=== PATIENT | male | born 1995 | race Two or more races ===

== ENCOUNTER 2016-11-09 21:15 | Emergency (ER) | payer BC, OTHER ==
[~2016-11-09] VITALS: Ht 177.8 cm; Wt 149.7 kg
[2016-11-09 22:07] LABS: Basophils # (auto) 0 uL; CONDITION Y; Eosinophils # (auto) 0.2 uL; Eosinophils % (auto) 1.5 % (0.0-7.0); Hematocrit 43.2 % (41.0-53.0); Hemoglobin 14.5 g/dL (13.5-17.5); Lymphocytes # (auto) 4.1 uL; Lymphocytes % (auto) 33.5 % (10.0-50.0); Mean Corpuscular Hemoglobin 27.4 pg (28.0-32.0); Mean Corpuscular Hgb Conc. 33.6 g/dL (32.0-36.0); Mean Corpuscular Volume 81.6 fL (80.0-100.0); Mean Platelet Volume 7.9 fL (7.4-10.4); Monocytes # (auto) 0.9 uL; Monocytes % (auto) 7.1 % (0.0-12.0); Neutrophils # (auto) 7.1 uL; Neutrophils % (auto) 57.9 % (37.0-80.0); Platelet Count (auto) 409 10^3/uL (140-450); Red Cell Distribution Width 14.7 % (11.6-16.0); White Blood Cell 12.3 10^3/uL (4.4-10.8)
[2016-11-09 22:41] LABS: Albumin 3.5 g/dL (3.4-5.0); Anion Gap 9 (5-15); Aspartate Aminotransferase 19 U/L (15-37); Blood Urea Nitrogen 14 mg/dL (7-18); Calcium 8.3 mg/dL (8.5-10.1); Carbon Dioxide 26 mmol/L (21-32); Chloride 105 mmol/L (98-107); GFR African American 91 mL/min; GFR Non-African American 75 mL/min; Glucose 100 mg/dL (74-106); Sodium 140 mmol/L (136-145)
[2016-11-09 22:46] LABS: Alkaline Phosphatase 118 U/L (45-117); Bilirubin, Total 0.2 mg/dL (0.2-1.0); Total Protein 7.7 g/dL (6.4-8.2)
[2016-11-10] MEDS ORDERED: LORazepam 0.5 MG TAB PO ONE (01:15)
[2016-11-10 02:14] VITALS: BP 149/102
== END 2016-11-10 02:33 | disposition home or self-care (01) ==
LOC: ER 21:19
DX: R07.9 Chest pain, unspecified (principal); R06.02 Shortness of breath
CPT/HCPCS: 36415; 80053; 84484; 85025; 93005

== ENCOUNTER 2016-12-25 14:59 | Emergency (ER) | payer OTHER ==
[~2016-12-25] VITALS: Ht 177.8 cm; Wt 149.7 kg
[2016-12-25 16:24] VITALS: BP 153/94
== END 2016-12-25 17:10 | disposition home or self-care (01) ==
LOC: ER 15:14
DX: S90.821A Blister (nonthermal), right foot, initial encounter (principal); X58.XXXA Exposure to other specified factors, initial encounter; Y93.89 Activity, other specified; Y99.8 Other external cause status; Y92.89 Other specified places as the place of occurrence of the external cause

== ENCOUNTER 2017-02-06 10:50 | Emergency (ER) | payer OTHER ==
[~2017-02-06] VITALS: Ht 177.8 cm; Wt 149.7 kg
[2017-02-06 11:00] VITALS: BP 142/106
== END 2017-02-06 11:41 | disposition home or self-care (01) ==
LOC: ER 10:50
DX: L02.622 Furuncle of left foot (principal)

== ENCOUNTER 2020-02-05 20:18 | Emergency (ER) | payer MEDICAID, OTHER ==
[~2020-02-05] VITALS: Ht 177.8 cm; Wt 161.0 kg
[2020-02-05 21:27] LABS: Basophils # (auto) 0 10 ^3/uL (0-0.2); Basophils % (auto) 0.2 % (0.0-2.0); Eosinophils # (auto) 0.3 10 ^3/uL (0-0.8); Eosinophils % (auto) 1.9 % (0.0-7.0); Hematocrit 44.4 % (41.0-53.0); Hemoglobin 14.7 g/dL (13.5-17.5); Lymphocytes % (auto) 29.7 % (10.0-50.0); Mean Corpuscular Hemoglobin 27.2 pg (28.0-32.0); Mean Corpuscular Volume 82.5 fL (80.0-100.0); Monocytes # (auto) 1.1 10 ^3/uL (0-1.3); Monocytes % (auto) 8.1 % (0.0-12.0); Neutrophils # (auto) 8.2 10 ^3/uL (1.6-8.6); Neutrophils % (auto) 60.1 % (37.0-80.0); Platelet Count (auto) 377 10^3/uL (140-450); Red Blood Cells 5.38 10^6/uL (4.5-5.90); Red Cell Distribution Width 15.3 % (11.8-14.3); White Blood Cell 13.6 10^3/uL (4.4-10.8)
[2020-02-05 21:42] LABS: Albumin 3.6 g/dL (3.4-5.0); Anion Gap 5 (5-15); Blood Urea Nitrogen 16 mg/dL (7-18); Calcium 9.6 mg/dL (8.5-10.1); Carbon Dioxide 29 mmol/L (21-32); Chloride 104 mmol/L (98-107); Glucose 88 mg/dL (74-106); Sodium 138 mmol/L (136-145)
[2020-02-05 21:47] LABS: Alanine Aminotransferase 32 U/L (16-61); Alkaline Phosphatase 108 U/L (45-117); Aspartate Aminotransferase 19 U/L (15-37); BUN/Creatinine Ratio 14.2; Bilirubin, Total 0.2 mg/dL (0.2-1.0); GFR African American 101 mL/min; GFR Non-African American 83 mL/min
[2020-02-06 00:48] LABS: INR 0.92 (0.9-1.15); Partial Thromboplastin Time 26.8 sec (23.0-31.2)
[2020-02-06 04:00] VITALS: BP 118/68
[2020-02-06] MEDS ORDERED: LISI-646 PO (04:31)
[2020-02-06] MEDS ORDERED: ACE650RS PO (04:31)
[2020-02-06] MEDS ORDERED: ASCO500T11 PO (04:31)
[2020-02-06] MEDS ORDERED: TEMA30CA PO (04:31)
[2020-02-06] MEDS ORDERED: MULT-1018 PO (04:31)
[2020-02-06] MEDS ORDERED: ACET1CAP14 PO (04:31)
[2020-02-06] MEDS ORDERED: DIPH-515 PO (04:31)
[2020-02-06] MEDS ORDERED: [UNRECOGNIZED DRUG - CODE] SL (04:31)
[2020-02-06] MEDS ORDERED: HCTZ25T PO (04:31)
[2020-02-06] MEDS ORDERED: MIRT30TA PO (04:31)
[2020-02-06] MEDS ORDERED: KETO2CRE4 TOP (04:31)
[2020-02-06] MEDS ORDERED: MELA3TAB27 PO (04:31)
[2020-02-06] MEDS ORDERED: CITA10TA59 PO (04:31)
[2020-02-06] MEDS ORDERED: CHOL20007 PO (04:31)
[2020-02-06] MEDS ORDERED: DONE10TA40 PO (04:31)
[2020-02-06] MEDS ORDERED: LACTCAP35 PO (04:31)
[2020-02-06] MEDS ORDERED: LEVO125T7 PO (04:31)
== END 2020-02-06 05:06 | disposition home or self-care (01) ==
LOC: ER 20:18
DX: R07.89 Other chest pain (principal); K21.9 Gastro-esophageal reflux disease without esophagitis; I10 Essential (primary) hypertension
CPT/HCPCS: 36415; 71045; 80053; 83880; 84484; 85025; 85379; 85610; 85730; 93005

== ENCOUNTER 2021-05-25 15:11 | Emergency (ER) | payer MEDICAID ==
[~2021-05-25] VITALS: Ht 177.8 cm; Wt 166.5 kg
[~2021-05-25 15:11] MED LIST: ACE650RS PO; ACET1CAP14 PO; ASCO500T11 PO; CHOL20007 PO; CITA10TA8 PO; DIPH-515 PO; DONE1TAB88 PO; HYDR25TA5 PO; KETO2CRE4 TOP; LACTCAP35 PO; LEVO125T7 PO; LISI20TA28 PO; MELA3TAB27 PO; MIRT-66 PO; MULT-1018 PO; TEMA30CA PO; [UNRECOGNIZED DRUG - CODE] SL
[2021-05-25] MEDS ORDERED: ASPirin 81 mg TAB PO ONE (15:30)
[2021-05-25 16:14] LABS: Basophils # (auto) 0 10 ^3/uL (0-0.2); Basophils % (auto) 0.4 % (0.0-2.0); Lymphocytes # (auto) 2.6 10 ^3/uL (0.4-5.4); Monocytes # (auto) 0.9 10 ^3/uL (0-1.3); Neutrophils # (auto) 7.8 10 ^3/uL (1.6-8.6); White Blood Cell 11.4 10^3/uL (4.4-10.8)
[2021-05-25 16:17] LABS: Eosinophils # (auto) 0.1 10 ^3/uL (0-0.8); Eosinophils % (auto) 1.1 % (0.0-7.0); Hematocrit 42.7 % (41.0-53.0); Hemoglobin 14.2 g/dL (13.5-17.5); Mean Corpuscular Hgb Conc. 33.2 g/dL (32.0-36.0); Mean Corpuscular Volume 81.3 fL (80.0-100.0); Monocytes % (auto) 7.5 % (0.0-12.0); Nucleated Red Blood Cells % 0.2 %; Red Blood Cells 5.25 10^6/uL (4.5-5.90); Red Cell Distribution Width 14.4 % (11.8-14.3)
[2021-05-25 16:35] LABS: Albumin 3.5 g/dL (3.4-5.0); BUN/Creatinine Ratio 9.5; Calcium 8.8 mg/dL (8.5-10.1); Potassium 3.9 mmol/L (3.5-5.1)
[2021-05-25 16:40] LABS: Bilirubin, Total 0.4 mg/dL (0.2-1.0); Total Protein 7.5 g/dL (6.4-8.2)
[2021-05-25 16:48] LABS: Alcohol, Urine < 3.0 mg/dL (0-10); Amphetamine Screen, Urine NEGATIVE (NEGATIVE); Barbiturate Scree,Urine NEGATIVE (NEGATIVE); Benzodiazephine Screen, Urine NEGATIVE (NEGATIVE); Cannabinoid Screen, Urine NEGATIVE (NEGATIVE); Cocaine Screen, Urine NEGATIVE (NEGATIVE); Opiate Scree,Urine NEGATIVE (NEGATIVE); Phencyclidine Screen, Urine NEGATIVE (NEGATIVE)
[2021-05-25 17:30] VITALS: BP 141/79
== END 2021-05-25 18:06 | disposition home or self-care (01) ==
LOC: ER 15:11
DX: R07.89 Other chest pain (principal); I10 Essential (primary) hypertension
CPT/HCPCS: 36415; 71046; 80053; 80307; 84484; 85025; 85379; 93005

== ENCOUNTER 2022-02-04 15:47 | Emergency (ER) | payer MEDICAID ==
[~2022-02-04] VITALS: Ht 177.8 cm; Wt 170.0 kg
[2022-02-04 16:18] LABS: Basophils # (auto) 0.1 10 ^3/uL (0-0.2); Basophils % (auto) 0.7 % (0.0-2.0); Eosinophils # (auto) 0.1 10 ^3/uL (0-0.8); Eosinophils % (auto) 1.1 % (0.0-7.0); Hematocrit 44.9 % (41.0-53.0); Hemoglobin 14.9 g/dL (13.5-17.5); Lymphocytes # (auto) 3.2 10 ^3/uL (0.4-5.4); Lymphocytes % (auto) 24.7 % (10.0-50.0); Mean Corpuscular Hemoglobin 27.3 pg (28.0-32.0); Mean Corpuscular Hgb Conc. 33.2 g/dL (32.0-36.0); Mean Corpuscular Volume 82.3 fL (80.0-100.0); Neutrophils # (auto) 8.4 10 ^3/uL (1.6-8.6); Neutrophils % (auto) 65.5 % (37.0-80.0); Red Blood Cells 5.46 10^6/uL (4.5-5.90); Red Cell Distribution Width 14.8 % (11.8-14.3); White Blood Cell 12.9 10^3/uL (4.4-10.8)
[2022-02-04 16:29] VITALS: BP 153/81
[2022-02-04 16:36] LABS: Albumin 3.7 g/dL (3.4-5.0); Calcium 9.2 mg/dL (8.5-10.1)
[2022-02-04 16:46] LABS: BUN/Creatinine Ratio 15.3; Bilirubin, Total 0.4 mg/dL (0.2-1.0); CRP High Sensitivity 1.83 mg/dL (< 0.3); Total Protein 7.3 g/dL (6.4-8.2)
== END 2022-02-04 22:04 | disposition home or self-care (01) ==
LOC: ER 15:47
DX: R07.89 Other chest pain (principal); I10 Essential (primary) hypertension; Z20.822 Contact with and (suspected) exposure to COVID-19; Z77.22 Contact with and (suspected) exposure to environmental tobacco smoke (acute) (chronic)
CPT/HCPCS: 36415; 71045; 80053; 84484; 85025; 85379; 86141; 87426; 87804; 93005

== ENCOUNTER 2022-02-13 15:12 | Emergency (ER) | payer MEDICAID ==
[~2022-02-13] VITALS: Ht 177.8 cm; Wt 172.5 kg
[2022-02-13 16:27] VITALS: BP 113/79
[2022-02-13] MEDS ORDERED: AZIT500T66 PO (16:33)
== END 2022-02-13 17:07 | disposition home or self-care (01) ==
LOC: ER 15:12
DX: J03.90 Acute tonsillitis, unspecified (principal); I10 Essential (primary) hypertension; Z79.2 Long term (current) use of antibiotics; Z79.899 Other long term (current) drug therapy

== ENCOUNTER 2022-06-26 09:23 | Emergency (ER) | payer MEDICAID ==
[~2022-06-26] VITALS: Ht 177.8 cm; Wt 163.6 kg
[~2022-06-26 09:23] MED LIST changes: +AZIT500T66 PO
[2022-06-26 09:27] VITALS: BP 132/80
[2022-06-26 10:10] LABS: INR 0.94 (0.9-1.15); Partial Thromboplastin Time 30.2 sec (24.6-33.4)
[2022-06-26 10:11] LABS: Albumin 3.3 g/dL (3.4-5.0); BUN/Creatinine Ratio 14.8 (10.0-20.0); Calcium 9.2 mg/dL (8.5-10.1); Potassium 3.9 mmol/L (3.5-5.1)
[2022-06-26 10:13] LABS: Bilirubin, Total 0.3 mg/dL (0.2-1.0); Total Protein 7.8 g/dL (6.4-8.2)
[2022-06-26 10:23] LABS: Basophils # (auto) 0.1 10 ^3/uL (0-0.2); Basophils % (auto) 0.6 % (0.0-2.0); Eosinophils # (auto) 0.2 10 ^3/uL (0-0.8); Eosinophils % (auto) 2.1 % (0.0-7.0); Hematocrit 44.4 % (41.0-53.0); Hemoglobin 15.1 g/dL (13.5-17.5); Lymphocytes # (auto) 2.7 10 ^3/uL (0.4-5.4); Lymphocytes % (auto) 29.1 % (10.0-50.0); Mean Corpuscular Hemoglobin 27.5 pg (28.0-32.0); Mean Corpuscular Hgb Conc. 33.9 g/dL (32.0-36.0); Mean Corpuscular Volume 81.3 fL (80.0-100.0); Monocytes # (auto) 0.5 10 ^3/uL (0-1.3); Monocytes % (auto) 5.9 % (0.0-12.0); Neutrophils # (auto) 5.8 10 ^3/uL (1.6-8.6); Neutrophils % (auto) 62.3 % (37.0-80.0); Nucleated Red Blood Cells % 0.3 %; Red Blood Cells 5.46 10^6/uL (4.5-5.90); Red Cell Distribution Width 14.3 % (11.8-14.3); White Blood Cell 9.3 10^3/uL (4.4-10.8)
== END 2022-06-26 11:56 | disposition home or self-care (01) ==
LOC: ER 09:23
DX: R07.89 Other chest pain (principal); I10 Essential (primary) hypertension; Z79.2 Long term (current) use of antibiotics; Z79.899 Other long term (current) drug therapy
CPT/HCPCS: 36415; 71045; 80053; 83735; 83880; 84484; 85025; 85610; 85730; 93005

== ENCOUNTER 2022-06-29 18:51 | Inpatient (IN) | payer MEDICAID ==
[~2022-06-29] VITALS: Ht 177.8 cm; Wt 168.4 kg
[2022-06-29 20:01] LABS: Basophils # (auto) 0 10 ^3/uL (0-0.2); Basophils % (auto) 0.3 % (0.0-2.0); Eosinophils # (auto) 0.1 10 ^3/uL (0-0.8); Hematocrit 42.9 % (41.0-53.0); Hemoglobin 14.6 g/dL (13.5-17.5); Lymphocytes # (auto) 3.7 10 ^3/uL (0.4-5.4); Lymphocytes % (auto) 30.6 % (10.0-50.0); Mean Corpuscular Hemoglobin 27.1 pg (28.0-32.0); Mean Corpuscular Hgb Conc. 33.9 g/dL (32.0-36.0); Mean Corpuscular Volume 79.9 fL (80.0-100.0); Monocytes # (auto) 0.9 10 ^3/uL (0-1.3); Monocytes % (auto) 7.7 % (0.0-12.0); Neutrophils # (auto) 7.4 10 ^3/uL (1.6-8.6); Neutrophils % (auto) 60.4 % (37.0-80.0); Nucleated Red Blood Cells % 0.2 %; Red Blood Cells 5.37 10^6/uL (4.5-5.90); Red Cell Distribution Width 14.3 % (11.8-14.3); White Blood Cell 12.2 10^3/uL (4.4-10.8)
[2022-06-29 20:14] LABS: Albumin 3.5 g/dL (3.4-5.0); BUN/Creatinine Ratio 14.4 (10.0-20.0); Calcium 9.2 mg/dL (8.5-10.1); Potassium 3.7 mmol/L (3.5-5.1)
[2022-06-29 20:17] LABS: Bilirubin, Total 0.3 mg/dL (0.2-1.0)
[2022-06-29 20:20] LABS: INR 0.98 (0.9-1.15); Partial Thromboplastin Time 31.2 sec (24.6-33.4)
[2022-06-30] MEDS ORDERED: HYDROcodone-ACET 5/325MG TAB PO PRN (06:30)
[2022-06-30] MEDS ORDERED: cloNIDine HCL 0.1 MG TAB PO PRN (06:30)
[2022-06-30] MEDS ORDERED: ACETAMINOPHEN 325 MG TAB PO PRN (06:30)
[2022-06-30] MEDS ORDERED: ONDANSETRON HCL 4 MG/2 ML VIAL IV PRN (06:30)
[2022-06-30] MEDS ORDERED: TEMAZEPAM 15 MG CAP PO PRN (06:30)
[2022-06-30] MEDS: PANTOPRAZOLE 40 MG TAB PO SCH (09:58)
[2022-06-30] MEDS: ASPirin 81 mg TAB PO SCH (09:59)
[2022-06-30] MEDS: LISINOPRIL 10 MG TAB PO SCH (10:00)
[2022-06-30 16:46] LABS: Folate (Folic Acid) 12.29 ng/mL (5.38-24)
[2022-06-30 16:58] LABS: Alcohol, Urine < 3.0 mg/dL (0-10); Amphetamine Screen, Urine NEGATIVE (NEGATIVE); Barbiturate Scree,Urine NEGATIVE (NEGATIVE); Benzodiazephine Screen, Urine NEGATIVE (NEGATIVE); Cannabinoid Screen, Urine NEGATIVE (NEGATIVE); Cocaine Screen, Urine NEGATIVE (NEGATIVE); Opiate Scree,Urine NEGATIVE (NEGATIVE); Phencyclidine Screen, Urine NEGATIVE (NEGATIVE)
[2022-06-30] MEDS ORDERED: ATORVASTATIN 20 MG TAB PO SCH (22:00)
[2022-06-30 23:40] VITALS: BP 133/70
[2022-07-01] VITALS: BP 133/70
[2022-07-01 05:00] VITALS: BP 108/61
[2022-07-01 06:48] LABS: Basophils # (auto) 0 10 ^3/uL (0-0.2); Basophils % (auto) 0.5 % (0.0-2.0); Eosinophils # (auto) 0.2 10 ^3/uL (0-0.8); Hematocrit 41.2 % (41.0-53.0); Hemoglobin 13.9 g/dL (13.5-17.5); Lymphocytes # (auto) 2.5 10 ^3/uL (0.4-5.4); Lymphocytes % (auto) 31.2 % (10.0-50.0); Mean Corpuscular Hemoglobin 28.1 pg (28.0-32.0); Mean Corpuscular Hgb Conc. 33.8 g/dL (32.0-36.0); Mean Corpuscular Volume 83.1 fL (80.0-100.0); Monocytes # (auto) 0.7 10 ^3/uL (0-1.3); Neutrophils # (auto) 4.5 10 ^3/uL (1.6-8.6); Neutrophils % (auto) 57.3 % (37.0-80.0); Red Blood Cells 4.95 10^6/uL (4.5-5.90); Red Cell Distribution Width 14.2 % (11.8-14.3); White Blood Cell 7.9 10^3/uL (4.4-10.8)
[2022-07-01 07:27] LABS: Calcium 8.8 mg/dL (8.5-10.1)
[2022-07-01 08:15] VITALS: BP 143/76
[2022-07-01 09:00] VITALS: BP 129/71
[2022-07-01] MEDS: ASPirin 81 mg TAB PO SCH (09:58)
[2022-07-01] MEDS: PANTOPRAZOLE 40 MG TAB PO SCH (09:58)
[2022-07-01] MEDS ORDERED: THIAMINE 100mg/ml INJ (200mg/2ml VIAL) IV SCH (10:00)
[2022-07-01] MEDS: LISINOPRIL 10 MG TAB PO SCH (10:06)
[2022-07-01 11:55] VITALS: BP 118/71
[2022-07-01 13:00] VITALS: BP 122/58
== END 2022-07-01 16:48 | disposition home or self-care (01) | DRG 47 ==
LOC: ER 18:51 → OVERFLOW 06-30 06:22 → WEST WING 06-30 23:29
PROVIDERS: ADMIT Nurse Practitioner; ATTEND Nurse Practitioner Acute Care
DX: G45.9 Transient cerebral ischemic attack, unspecified (principal); R65.10 Systemic inflammatory response syndrome (SIRS) of non-infectious origin without acute organ dysfunction; Z68.43 Body mass index [BMI] 50.0-59.9, adult; E66.01 Morbid (severe) obesity due to excess calories; I10 Essential (primary) hypertension; D72.829 Elevated white blood cell count, unspecified; H53.8 Other visual disturbances; R20.2 Paresthesia of skin; Z20.822 Contact with and (suspected) exposure to COVID-19
CPT/HCPCS: 36415; 70450; 70551; 71045; 80048; 80053; 80307; 82306; 82607; 82746; 83735; 83880; 84425; 84443; 84484; 85025; 85610; 85730; 87081; 87426; 93005; G0378

== ENCOUNTER 2023-11-17 18:50 | Emergency (ER) | payer MEDICAID ==
[~2023-11-17] VITALS: Ht 177.8 cm; Wt 163.7 kg
[~2023-11-17 18:50] MED LIST changes: +IBUP-1456 PO; -LISI20TA28 PO; +LISI20TA56 PO; -MIRT-66 PO; +MIRT-94 PO
[2023-11-17 22:37] VITALS: BP 136/84; TEMP 98.5
[2023-11-17 22:42] VITALS: PULSE 88; RESP 18; O2SAT 97
[2023-11-18 00:18] LABS: Rapid Influenza A Negative (Negative); Rapid Influenza B Negative (Negative); Rapid Strep A Screen-Throat Negative
[2023-11-18 00:19] LABS: COVID19 ANTIGEN SOFIA FIA NEGATIVE (NEGATIVE)
== END 2023-11-18 00:39 | disposition home or self-care (01) ==
LOC: ER 18:50
DX: B34.9 Viral infection, unspecified (principal); J11.1 Influenza due to unidentified influenza virus with other respiratory manifestations; I10 Essential (primary) hypertension; Z20.822 Contact with and (suspected) exposure to COVID-19
CPT/HCPCS: 36415; 87070; 87426; 87804; 87880

== ENCOUNTER 2024-05-19 16:11 | Emergency (ER) | payer MEDICAID ==
[~2024-05-19] VITALS: Ht 177.8 cm; Wt 167.2 kg
--- NOTE | 2024-05-19 16:33 | ECG ---
[facility] Test Date: 2024-05-19 Test Time: 16:28:04 Pat Name: EMORY KOCH Department: ER Room: Gender: M Flat Locker: ZE : 1995 Requested By: OTF LUNDBERG Order Number: [id number] Reading MD: Measurements Intervals [place] Rate: 97 P: 38 OH: 153 QRS: 31 QRSD: 83 T: 33 QT: 337 QTc: 428 Interpretive Statements Sinus rhythm ST elev, probable normal early repol pattern Please click the below link to view image of tracing.
--- NOTE | 2024-05-19 16:44 | ED.PDOC ---
HPI Comments 29 year old male presents to the ED with a chief complaint of chest pain onset yesterday (05/18/2024) around 15:30. 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 PMHx HTN. Denies dizziness, headache, nausea, vomiting, diarrhea, abdominal pain, dysuria. No other symptoms or modifying factors present at this time. Chief Complaint: Chest Pain Time Seen by MD: 16:25 Primary Care Provider: DENIES Reviewed Notes: Medications, Allergies Allergies: Coded Allergies: NO KNOWN ALLERGIES (Unverified , 11/09/16) Home Meds Active Scripts Ibuprofen (Ibuprofen) 800 Mg Tab, 1 TAB PO TID, #30 TAB Prov:GREGORIA GILL 06/24/23 Azithromycin (Azithromycin) 500 Mg Tab, 1 TAB PO DAILY, #5 TAB Prov:GREGORIA GILL 02/13/22 Reported Medications Acetaminophen (Tylenol) 325 Mg Cap, 325 MG PO Q4HPRN PRN for TEMP GREATER THAN 100.4, CAP 02/06/20 Diphenhydramine Hcl (Benadryl) 12.5 Mg/5 Ml El, 25 MG PO BIDPRN PRN for FOR ITCHING, ELX 02/06/20 Citalopram Hydrobromide (Celexa) 10 Mg Tab, 1 TAB PO HS, #30 TAB 2 Refills 02/06/20 Glycine (GLYCINE (L)) Pow, 1 SL, POW 02/06/20 Ascorbic Acid (VITAMIN C TABLET) 500 Mg Tb, 500 MG PO DAILY, TAB 02/06/20 Ketoconazole (Ketoconazole) 2 % Cre, 1 APPLIC TOP BID PRN for FOR ITCHING, #60 GRAMS 1 Refill 02/06/20 Cholecalciferol (VITAMIN D3) 2,000 Unit Tab, 2000 UNIT PO DAILY, TAB 02/06/20 Acetaminophen (Tylenol) 650 Mg Rc, 650 MG PO Q6HP PRN for PAIN SCALE 1 THRU 6, SUPP.RECT 02/06/20 Lactobacillus (PROBIOTIC) Cap, 1 PO DAILY, CAP 02/06/20 Temazepam (Temazepam) 30 Mg Cap, 15 MG PO HS, CAP 02/06/20 Melatonin (KP MELATONIN) 3 Mg Tab, 5 MG PO HS, TAB 02/06/20 Multiple Vitamin (Multivitamins) Tab, 1 TAB PO DAILY, #90 TAB 3 Refills 02/06/20 Mirtazapine (REMERON) 30 Mg Tab, 15 MG PO DAILY@DINNER, TAB 02/06/20 Lisinopril (Lisinopril) 20 Mg Tab, 20 MG PO DAILY, TAB 02/06/20 Levothyroxine Sodium (Levothyroxine Sodium) 125 Mcg Tab, 125 MCG PO QAM for 30 Days, MCG 02/06/20 Hctz (Hydrochlorothiazide) 25 Mg Tab, 12.5 MG PO DAILY, TAB 02/06/20 Donepezil Hydrochloride (DONEPEZIL HCL) 10 Mg Tab, 10 MG PO DAILY for 30 Days, MG 02/06/20 Information Source: Patient Mode of Arrival: Ambulatory Severity: Moderate Timing: Days Duration: Since onset Prehospital treatment: None Location: Chest (L) Radiation: No Radiation Quality: Other (discomfort) Onset: Other Cardiac Risk Factors: HTN PE Risk Factors: None History of: None Modifying Factors: Nothing Associated Signs and Symptoms: SOB, None (numbness) Past Medical History PAST MEDICAL HISTORY: HTN Surgical History: Denies all surgeries Family History Family History: Reviewed,noncontributory to illness Social History Smoker: Non-Smoker Alcohol: Heavy Drugs: Denies Drug Use Lives In: Home Constitutional: denies: chills, diaphoresis, fatigue, fever, malaise, sweats, weakness, others EENTM: denies: blurred vision, double vision, ear bleeding, ear discharge, ear drainage, ear pain, ear ringing, eye pain, eye redness, hearing loss, mouth pain, mouth swelling, nasal discharge, nose bleeding, nose congestion, nose pain, photophobia, tearing, throat pain, throat swelling, voice changes, others Respiratory: reports: shortness of breath; denies: cough, hemoptysis, orthopnea, SOB at rest, SOB with excertion, stridor, wheezing, others Cardiovascular: reports: chest pain (discomfort); denies: dizzy spells, diaphoresis, Dyspnea on exertion, edema, irregular heart beat, left arm pain, lightheadedness, palpitations, PND, syncope, others Gastrointestinal: denies: abdomen distended, abdominal pain, blood streaked bowels, constipated, diarrhea, dysphagia, difficulty swallowing, hematemesis, melena, nausea, poor appetite, poor fluid intake, rectal bleeding, rectal pain, vomiting, others Genitourinary: denies: burning, dysuria, flank pain, frequency, hematuria, incontinence, penile discharge, penile sore, pain, testicle pain, testicle swelling, urgency, others Neurological: reports: left sided weakness (facial); denies: dizziness, fainting, headache, left sided numbness, numbness, paresthesia, pre-existing deficit, right sided numbness, right sided weakness, seizure, speech problems, tingling, tremors, weakness, others Musculoskeletal: denies: back pain, gout, joint pain, joint swelling, muscle pain, muscle stiffness, neck pain, others Integumetry: denies: bruises, change in color, change in hair/nails, dryness, laceration, lesions, lumps, rash, wounds, others Allergic/Immunocompromised: denies: Difficulty Healing, Frequent Infections, Hives, Itching, others Hematologic/Lymphatic: denies: anemia, blood clots, easy bleeding, easy bruising, swollen glands, others Endocrine: denies: excessive hunger, excessive sweating, excessive thirst, excessive urination, flushing, intolerance to cold, intolerance to heat, unexplained weight gain, unexplained weight loss, others Psychiatric: denies: anxiety, bipolar disorder, depression, hopeless, panic d isorder, schizophrenia, sleepless, suicidal, others All Other Systems: Reviewed and Negative Physical Exam General Appearance: No Apparent Distress, Normal HEENT: Normal ENT Inspection, Pharynx Normal, TMs Normal Neck: Full Range of Motion, Non-Tender, Normal, Normal Inspection Respiratory: Chest Non-Tender, Lungs Clear, No Accessory Muscle Use, No Respiratory Distress, Normal Breath Sounds Cardiovascular: No Edema, No JVD, No Murmur, No Gallop, Normal Peripheral Pulses, Regular Rate/Rhythm Breast Exam: Deferred Gastrointestinal: No Organomegaly, Non Tender, No Pulsatile Mass, Normal Bowel Sounds, Soft Genitalia: Deferred Pelvic: Deferred Rectal: Deferred Extremities: No calf tenderness, Normal capillary refill, Normal inspection, Normal range of motion, Non-tender, No pedal edema Musculoskeletal : Apperance: Normal Neurologic: Alert, 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 Was a procedure done?: No CP Differential Dx Differential Diagnosis: Angina, Anxiety / Panic Attack, Electrolyte Disorder, Hyperventilation, [place] Differential Diagnosis: Angina, Aortic dissection, Chest Wall Pain, Chol elithiasis, Costochondritis, Esophageal reflux/spasm, Gastritis, Myocardial Infarction, Pericarditis, Pneumonia, Pneumothorax, Pulmonary Embolus X-Ray, Labs, Meds, VS Vital Signs Date Time Temp Pulse Resp B/P (MAP) Pulse Ox O2 Delivery O2 Flow Rate FiO2 05/19/24 17:11 Room Air* 0 21 05/19/24 17:10 97.6 102 24 160/97 (118) 94 97.6 05/19/24 16:28 97 05/19/24 16:25 98.2 102 18 156/96 (116) 97 Lab Test 05/19/24 17:32 05/19/24 16:43 05/19/24 16:31 Range/Units Troponin I High Sensitivity < 3 L < 3 L </=54 ng/L White Blood Count 13.7 H 4.4-10.8 10^3/uL Red Blood Count 5.19 4.5-5.90 10^6/uL Hemoglobin 14.6 13.5-17.5 g/dL Hematocrit 43.6 41.0-53.0 % Mean Corpuscular Volume 84.1 80.0-100.0 fL Mean Corpuscular Hemoglobin 28.1 28.0-32.0 pg Mean Corpuscular Hemoglobin Concent 33.4 32.0-36.0 g/dL Red Cell Distribution Width 15.2 H 11.8-14.3 % Platelet Count 384 140-450 10^3/uL Mean Platelet Volume 7.0 6.9-10.8 fL Neutrophils (%) (Auto) 62.6 37.0-80.0 % Lymphocytes (%) (Auto) 26.2 10.0-50.0 % Monocytes (%) (Auto) 8.8 0.0-12.0 % Eosinophils (%) (Auto) 1.9 0.0-7.0 % Basophils (%) (Auto) 0.5 0.0-2.0 % Neutrophils # (Auto) 8.6 1.6-8.6 10 ^3/uL Lymphocytes # (Auto) 3.6 0.4-5.4 10 ^3/uL Monocytes # (Auto) 1.2 0-1.3 10 ^3/uL Eosinophils # (Auto) 0.3 0-0.8 10 ^3/uL Basophils # (Auto) 0.1 0-0.2 10 ^3/uL Nucleated Red Blood Cells 0.0 % Sodium Level 139 136-145 mmol/L Potassium Level 4.2 3.5-5.1 mmol/L Chloride Level 104 98-107 mmol/L Carbon Dioxide Level 28 20-31 mmol/L Anion Gap 7 5-15 Blood Urea Nitrogen 17 9-23 mg/dL Creatinine 1.16 0.700-1.30 mg/dL Glomerular Filtration Rate Calc 87 >90 mL/min BUN/Creatinine Ratio 14.7 10.0-20.0 Serum Glucose 84 74-106 mg/dL Calcium Level 9.7 8.7-10.4 mg/dL POC Glucose 125 H 70-106 mg/dl [place] [address] Ph: [phone] DIAGNOSTIC IMAGING Diagnostic Imaging Report : [id number] Signed PATIENT: EMORY KOCH ACCT: [id number] UNIT: [id number] : 1995 LOC: ER ROOM / BED: / AGE / SEX: 29 / M ADM STATUS: REG ER SERVICE [id number] ORDERING PHYSICIAN: OTF LUNDBERG MD PROCEDURE(s): CXRP - CHEST PORTABLE REASON: cp ORDER NUMBER(s): [id number], ACCESSION NUMBER(s): [id number] CHEST RADIOGRAPH Indication: cp Technique: Single frontal view of the chest was obtained Comparison: XY CHEST XRAY 1 VIEW on DOS: 06/29/22, XY CHEST PORTABLE on DOS: 06/26/22, EKG on DOS: 02/04/22 FINDINGS: Lines and Tubes: None Lungs: No focal consolidation. Pleura: No effusion. No pneumothorax. Cardiomediastinal contours: Unremarkable Bones: No acute osseous abnormality. IMPRESSION: No acute cardiopulmonary disease. ATED BY: LUCY BATES DO DICTATED DATE/TIME: 05/19/241650 SIGNED BY: LUCY BATES DO SIGNED DATE/TIME: 05/19/241650 CC: [place] [address] Ph: [phone] DIAGNOSTIC IMAGING Diagnostic Imaging Report : [id number] Signed PATIENT: EMORY KOCH ACCT: [id number] UNIT: [id number] : 1995 LOC: ER ROOM / BED: / AGE / SEX: 29 / M ADM STATUS: REG ER SERVICE 31 ORDERING PHYSICIAN: OTF LUNDBERG MD PROCEDURE(s): HWOCT - HEAD WITHOUT CONTRAST REASON: left facial numbness ORDER NUMBER(s): [id number], ACCESSION NUMBER(s): [id number] CT HEAD WITHOUT CONTRAST Indication: left facial numbness EXAM DATE: 05/19/2024 04:33 PM COMPARISON: CT HEAD WITHOUT CONTRAST on DOS: 06/24/23, CT STROKE CTH on DOS: 06/29/22 TECHNIQUE: CT of the head without intravenous contrast. RADIATION DOSE: CTDIvol: 58.17 mGy, DLP: 932.48 mGy*cm FINDINGS: There is no intracranial hemorrhage. There is no extra-axial fluid, mass, mass effect or midline shift. The ventricles are midline and normal in size. Basilar cisterns are patent. Enriquez-white differentiation is maintained. The mastoids are well pneumatized. Mucosal thickening of the ethmoids and sphe noids, left maxillary sinus. Left maxillary sinus mucosal retention cyst/ polyp measuring 2.6 cm.. Imaged portion of the orbits are unremarkable. IMPRESSION: 1. No intracranial hemorrhage or mass effect. 2. Paranasal sinus disease. ATED BY: MYKE LOU MD DICTATED DATE/TIME: 05/19/241649 SIGNED BY: MYKE LOU MD SIGNED DATE/TIME: 05/19/241649 CC: Time of 1ST Reevaluation: 16:55 Reevaluation 1ST: Unchanged Patient Education/Counseling: Diagnosis, Treatment, Prognosis Family Education/Counseling: No Family Present Additional Information - The following tests were ordered, and results were reviewed by me: EKG-x3, CBC, XY CHEST, TROP-x3, BMP, CT HEAD WITHOUT CONTRAST - I reviewed and agreed with the following test results read by other provider:CT HEAD WITHOUT CONTRAST, XY CHEST - I discussed treatments and results with medical personnel and: patient pt has no PE risks and no CAD risk factors, other than obesity. he reports he feels much better after being here. he feels he was stressed and had a panic attack. pt's ct and cardiac workup are unremarkable and he declined to be admitted for further workup Departure 1 Departure Time of Disposition: 19:26 Impression: Primary Impression: Paresthesia Additional Impression: Anxiety Disposition: HOME / SELF CARE / HOMELESS Condition: Good Discharged With: Self Critical Care Note Critical Care Time?: Yes (55 min-critical care time only) Critical care comment: due to concerns for deterioration of patient's condition, the care required my highest level of attention and readiness. i assessed the patient's condition, reviewed relevant documents, communicated with medical personnel, ordered the proper tests and treatments, reassessed for results and response to treatments, spoke to family and consultants and formulated a plan of care Stability Stability form required: No Heart Score Heart Score: Heart Score Response (Comments) Value History Slightly Suspicious 0 EKG Normal 0 Age <45 0 Risk Factors No known risk factors 0 Troponin Normal limit 0 Total 0 I personally scribed for OTF LUNDBERG MD ([email or web address]) on 05/19/24 at 16:44. Electronically submitted by Karen Dan ([email or web address]). I personally scribed for OTF LUNDBERG MD ([email or web address]) on 05/19/24 at 16:48. Electronically submitted by Karen Dan ([email or web address]). I personally scribed for OTF LUNDBERG MD ([email or web address]) on 05/19/24 at 17:34. Electronically submitted by Karen Dan ([email or web address]). TOF LUNDBERG MD May 19, 2024 16:44
[2024-05-19 16:52] LABS: Basophils # (auto) 0.1 10 ^3/uL (0-0.2); Basophils % (auto) 0.5 % (0.0-2.0); Eosinophils # (auto) 0.3 10 ^3/uL (0-0.8); Eosinophils % (auto) 1.9 % (0.0-7.0); Hematocrit 43.6 % (41.0-53.0); Hemoglobin 14.6 g/dL (13.5-17.5); Lymphocytes # (auto) 3.6 10 ^3/uL (0.4-5.4); Lymphocytes % (auto) 26.2 % (10.0-50.0); Mean Corpuscular Hemoglobin 28.1 pg (28.0-32.0); Mean Corpuscular Hgb Conc. 33.4 g/dL (32.0-36.0); Mean Corpuscular Volume 84.1 fL (80.0-100.0); Monocytes # (auto) 1.2 10 ^3/uL (0-1.3); Monocytes % (auto) 8.8 % (0.0-12.0); Neutrophils # (auto) 8.6 10 ^3/uL (1.6-8.6); Neutrophils % (auto) 62.6 % (37.0-80.0); Platelet Count (auto) 384 10^3/uL (140-450); Red Blood Cells 5.19 10^6/uL (4.5-5.90); Red Cell Distribution Width 15.2 % (11.8-14.3); White Blood Cell 13.7 10^3/uL (4.4-10.8)
--- NOTE | 2024-05-19 16:53 | DVH ---
CT HEAD WITHOUT CONTRAST Indication: left facial numbness EXAM DATE: 05/19/2024 04:33 PM COMPARISON: CT HEAD WITHOUT CONTRAST on DOS: 06/24/23, CT STROKE CTH on DOS: 06/29/22 TECHNIQUE: CT of the head without intravenous contrast. RADIATION DOSE: CTDIvol: 58.17 mGy, DLP: 932.48 mGy*cm FINDINGS: There is no intracranial hemorrhage. There is no extra-axial fluid, mass, mass effect or midline shif t. The ventricles are midline and normal in size. Basilar cisterns are patent. Enriquez-white differentia tion is maintained. The mastoids are well pneumatized. Mucosal thickening of the ethmoids and sphenoids, left maxillary s inus. Left maxillary sinus mucosal retention cyst/ polyp measuring 2.6 cm.. Imaged portion of the orb its are unremarkable. IMPRESSION: 1. No intracranial hemorrhage or mass effect. 2. Paranasal sinus disease.
--- NOTE | 2024-05-19 16:53 | DVH ---
CHEST RADIOGRAPH Indication: cp Technique: Single frontal view of the chest was obtained Comparison: XY CHEST XRAY 1 VIEW on DOS: 06/29/22, XY CHEST PORTABLE on DOS: 06/26/22, EKG on DOS: FINDINGS: Lines and Tubes: None Lungs: No focal consolidation. Pleura: No effusion. No pneumothorax. Cardiomediastinal contours: Unremarkable Bones: No acute osseous abnormality. IMPRESSION: No acute cardiopulmonary disease.
[2024-05-19 17:18] LABS: Chloride 104 mmol/L (98-107); Potassium 4.2 mmol/L (3.5-5.1); Sodium 139 mmol/L (136-145)
[2024-05-19 17:19] LABS: Anion Gap 7 (5-15); Calcium 9.7 mg/dL (8.7-10.4); Carbon Dioxide 28 mmol/L (20-31)
[2024-05-19 17:24] LABS: BUN/Creatinine Ratio 14.7 (10.0-20.0); Blood Urea Nitrogen 17 mg/dL (9-23); Glucose 84 mg/dL (74-106)
[2024-05-19] MEDS ORDERED: ASPirin 325 MG TAB PO ONE (19:30)
[2024-05-19 20:49] VITALS: BP 151/96; PULSE 95; RESP 20; TEMP 97.9; O2SAT 95
== END 2024-05-19 20:54 | disposition home or self-care (01) ==
LOC: ER 16:11
DX: R20.2 Paresthesia of skin (principal); F41.9 Anxiety disorder, unspecified; I10 Essential (primary) hypertension; Z79.1 Long term (current) use of non-steroidal anti-inflammatories (NSAID); Z79.890 Hormone replacement therapy; Z79.899 Other long term (current) drug therapy
CPT/HCPCS: 36415; 70450; 71045; 80048; 82962; 84484; 85025; 93005

== ENCOUNTER 2024-05-25 08:01 | Emergency (ER) | payer MEDICAID ==
[~2024-05-25] VITALS: Ht 177.8 cm; Wt 167.6 kg
--- NOTE | 2024-05-25 08:38 | ED.PDOC ---
HPI Comments 29-year-old male with PMHx HTN presents with a chief complaint of chest pain. Patient states that his pain is localized to his sternal region, nonradiating, describes as pressure and is relieved with activity. Patient mentions that he was seen here at this facility x 1 week ago for the same chief complaint and was diagnosed with stress. Patient mentions that the symptoms are continuing and he was pressured by his to come be seen again. Patient is not in acute distres s at this time. No other symptoms or modifying factors present at this time. Chief Complaint: Chest Pain Time Seen by MD: 08:49 Primary Care Provider: MICHELA Reviewed Notes: Medications, Allergies Allergies: Coded Allergies: NO KNOWN ALLERGIES (Unverified , 11/09/16) Home Meds Active Scripts Ibuprofen (Ibuprofen) 800 Mg Tab, 1 TAB PO TID, #30 TAB Prov:GREGORIA GILL 06/24/23 Azithromycin (Azithromycin) 500 Mg Tab, 1 TAB PO DAILY, #5 TAB Prov:GREGORIA GILL 02/13/22 Reported Medications Acetaminophen (Tylenol) 325 Mg Cap, 325 MG PO Q4HPRN PRN for TEMP GREATER THAN 100.4, CAP 02/06/20 Diphenhydramine Hcl (Benadryl) 12.5 Mg/5 Ml El, 25 MG PO BIDPRN PRN for FOR ITCHING, ELX 02/06/20 Citalopram Hydrobromide (Celexa) 10 Mg Tab, 1 TAB PO HS, #30 TAB 2 Refills 02/06/20 Glycine (GLYCINE (L)) Pow, 1 SL, POW 02/06/20 Ascorbic Acid (VITAMIN C TABLET) 500 Mg Tb, 500 MG PO DAILY, TAB 02/06/20 Ketoconazole (Ketoconazole) 2 % Cre, 1 APPLIC TOP BID PRN for FOR ITCHING, #60 GRAMS 1 Refill 02/06/20 Cholecalciferol (VITAMIN D3) 2,000 Unit Tab, 2000 UNIT PO DAILY, TAB 02/06/20 Acetaminophen (Tylenol) 650 Mg Rc, 650 MG PO Q6HP PRN for PAIN SCALE 1 THRU 6, SUPP.RECT 02/06/20 Lactobacillus (PROBIOTIC) Cap, 1 PO DAILY, CAP 02/06/20 Temazepam (Temazepam) 30 Mg Cap, 15 MG PO HS, CAP 02/06/20 Melatonin (KP MELATONIN) 3 Mg Tab, 5 MG PO HS, TAB 02/06/20 Multiple Vitamin (Multivitamins) Tab, 1 TAB PO DAILY, #90 TAB 3 Refills 02/06/20 Mirtazapine (REMERON) 30 Mg Tab, 15 MG PO DAILY@DINNER, TAB 02/06/20 Lisinopril (Lisinopril) 20 Mg Tab, 20 MG PO DAILY, TAB 02/06/20 Levothyroxine Sodium (Levothyroxine Sodium) 125 Mcg Tab, 125 MCG PO QAM for 30 Days, MCG 02/06/20 Hctz (Hydrochlorothiazide) 25 Mg Tab, 12.5 MG PO DAILY, TAB 02/06/20 Donepezil Hydrochloride (DONEPEZIL HCL) 10 Mg Tab, 10 MG PO DAILY for 30 Days, MG 02/06/20 Information Source: Patient Mode of Arrival: Ambulatory Severity: Moderate Timing: Days Duration: Intermittent Prehospital treatment: None Location: Substernal Radiation: No Radiation Quality: Pressure Onset: At Rest Cardiac Risk Factors: None PE Risk Factors: None History of: Similar pain in past Past Medical History PAST MEDICAL HISTORY: HTN Surgical History: Denies all surgeries Family History Family History: Reviewed,noncontributory to illness Social History Smoker: Non-Smoker Alcohol: Heavy Drugs: Denies Drug Use Lives In: Home Constitutional: denies: chills, diaphoresis, fatigue, fever, malaise, sweats, weakness, others EENTM: denies: blurred vision, double vision, ear bleeding, ear discharge, ear drainage, ear pain, ear ringing, eye pain, eye redness, hearing loss, mouth pain, mouth swelling, nasal discharge, nose bleeding, nose congestion, nose pain, photophobia, tearing, throat pain, throat swelling, voice changes, others Respiratory: denies: cough, hemoptysis, orthopnea, SOB at rest, shortness of breath, SOB with excertion, stridor, wheezing, others Cardiovascular: reports: chest pain; denies: dizzy spells, diaphoresis, Dyspnea on exertion, edema, irregular heart beat, left arm pain, lightheadedness, palpitations, PND, syncope, others Gastrointestinal: denies: abdomen distended, abdominal pain, blood streaked bowels, constipated, diarrhea, dysphagia, difficulty swallowing, hematemesis, melena, nausea, poor appetite, poor fluid intake, rectal bleeding, rectal pain, vomiting, others Genitourinary: denies: burning, dysuria, flank pain, frequency, hematuria, incontinence, penile discharge, penile sore, pain, testicle pain, testicle swelling, urgency, others Neurological: denies: dizziness, fainting, headache, left sided numbness, left sided weakness, numbness, paresthesia, pre-existing deficit, right sided numbness, right sided weakness, seizure, speech problems, tingling, tremors, weakness, others Musculoskeletal: denies: back pain, gout, joint pain, joint swelling, muscle pain, muscle stiffness, neck pain, others Integumetry: denies: bruises, change in color, change in hair/nails, dryness, laceration, lesions, lumps, rash, wounds, others Allergic/Immunocompromised: denies: Difficulty Healing, Frequent Infections, Hives, Itching, others Hematologic/Lymphatic: denies: anemia, blood clots, easy bleeding, easy bruising, swollen glands, others Endocrine: denies: excessive hunger, excessive sweating, excessive thirst, excessive urination, flushing, intolerance to cold, intolerance to heat, unexplained weight gain, unexplained weight loss, others Psychiatric: denies: anxiety, bipolar disorder, depression, hopeless, panic disorder, schizophrenia, sleepless, suicidal, others All Other Systems: Reviewed and Negative Physical Exam General Appearance: Moderate Distress, Normal HEENT: Normal ENT Inspection, Pharynx Normal, TMs Normal Neck: Full Range of Motion, Non-Tender, Normal, Normal Inspection Respiratory: Chest Non-Tender, Lungs Clear, No Accessory Muscle Use, No Respiratory Distress, Normal Breath Sounds Cardiovascular: No Edema, No JVD, No Murmur, No Gallop, Normal Peripheral Pulses, Regular Rate/Rhythm Breast Exam: Deferred Gastrointestinal: No Organomegaly, Non Tender, No Pulsatile Mass, Normal Bowel Sounds, Soft Genitalia: Deferred Pelvic: Deferred Rectal: Deferred Extremities: No calf tenderness, Normal capillary refill, Normal inspection, Normal range of motion, Non-tender, No pedal edema Musculoskeletal : Apperance: Normal Neurologic: Alert, track rider 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 Was a procedure done?: No CP Differential Dx Differential Diagnosis: A-fib, A-Flutter, Angina, Anxiety / Panic Attack, Atrial Dysrhythmia, Electrolyte Disorder X-Ray, Labs, Meds, VS Vital Signs Date Time Temp Pulse Resp B/P (MAP) Pulse Ox O2 Delivery O2 Flow Rate FiO2 05/25/24 08:17 70 05/25/24 08:13 98.5 80 16 135/95 (108) 97 Patient alert. States that he was having chest pain upon rest yesterday. He does not have chest pain today. Vitals stable. Answering all questions. EKG reviewed does not show any acute changes. Reviewed his previous visit. Ambulating without difficulty. No sign of any distress. Pristine physical examination. No leg swelling. No shortness a breath. Heart rate within normal limits pain Saturation pristine on room air. Explained to the patient. Was told to follow up with his primary care physician. Was told to come back if there is any problem. Time of 1ST Reevaluation: 08:49 Reevaluation 1ST: Improved Patient Education/Counseling: Diagnosis, Treatment, Prognosis Family Education/Counseling: Diagnosis, Treatment, Prognosis Departure 1 Departure Time of Disposition: 08:47 Impression: Primary Impression: Musculoskeletal chest pain Disposition: 01 HOME / SELF CARE / HOMELESS Condition: Good Discharged With: Self Critical Care Note Critical Care Time?: No Stability Stability form required: No Heart Score Heart Score: Heart Score Response (Comments) Value History Slightly Suspicious 0 EKG Normal 0 Age <45 0 Risk Factors No known risk factors 0 Troponin Normal limit 0 Total 0 I personally scribed for GABRIELLA GONSALEZ MD ([email or web address]) on 05/25/24 at 08:38. Electronically submitted by Manuel Zhou ([email or web address]). GABRIELLA GONSALEZ MD May 25, 2024 08:38
[2024-05-25 09:00] VITALS: PULSE 84; RESP 18; O2SAT 97
[2024-05-25] MEDS: LORazepam 0.5 MG TAB PO ONE (09:16)
[2024-05-25] MEDS: ASPirin 325 MG TAB PO ONE (09:16)
[2024-05-25 10:32] LABS: Amphetamine Screen, Urine Neg (NEGATIVE); Barbiturate Scree,Urine Neg (NEGATIVE); Benzodiazephine Screen, Urine Neg (NEGATIVE); Cannabinoid Screen, Urine Neg (NEGATIVE); Cocaine Screen, Urine Neg (NEGATIVE); Opiate Scree,Urine Neg (NEGATIVE); Phencyclidine Screen, Urine Neg (NEGATIVE)
[2024-05-25 12:11] VITALS: BP 146/100; PULSE 76; RESP 18; TEMP 98.3; O2SAT 98
--- NOTE | 2024-05-29 14:27 | ECG ---
[facility] Test Date: 2024-05-25 Test Time: 08:17:07 Pat Name: EMORY KOCH Department: ER Room: Gender: M Circuit Walker: MARIA GUADALUPE : 1995 Requested By: GABRIELLA GONSALEZ Order Number: [id number] Reading MD: Measurements Intervals [place] Rate: 70 P: 29 AK: 167 QRS: 64 QRSD: 90 T: -2 QT: 396 QTc: 428 Interpretive Statements Sinus rhythm Borderline ST elevation, lateral leads Please click the below link to view image of tracing.
== END 2024-05-25 12:12 | disposition home or self-care (01) ==
LOC: ER 08:01
DX: R07.89 Other chest pain (principal); I10 Essential (primary) hypertension; F10.90 Alcohol use, unspecified, uncomplicated; Z79.1 Long term (current) use of non-steroidal anti-inflammatories (NSAID); Z79.899 Other long term (current) drug therapy; Y90.0 Blood alcohol level of less than 20 mg/100 ml
CPT/HCPCS: 36415; 80307; 84484; 93005